=== PATIENT | female | born 1940 | race Two or more races ===

== ENCOUNTER 2023-12-11 20:20 | Emergency (ER) | payer OTHER ==
[~2023-12-11] VITALS: Ht 167.6 cm; Wt 68.0 kg
[2023-12-11 21:13] LABS: HEMATOCRIT 34.3 % (36.0-45.00); HEMOGLOBIN 11.7 g/dL (12.0-15.00); MEAN CELL VOLUME 86.5 fL (80.00-100.00); MEAN CORPUSCULAR HEMOGLOBIN 29.4 pg (27.00-32.0); PLATELET COUNT 185 K/uL (150-450); RED BLOOD COUNT 3.97 M/uL (4.00-6.00); RED CELL DISTRIBUTION WIDTH 13.9 % (11.5-14.5)
== END 2023-12-11 23:17 | disposition home or self-care (01) ==
LOC: ER 20:20
PROVIDERS: Emergency Medicine
DX: R53.81 Other malaise (principal); Z78.9 Other specified health status; Z88.0 Allergy status to penicillin